=== PATIENT | female | born 1965 | race Caucasian/White ===

== ENCOUNTER 2017-07-22 09:06 | Day surgery (SDC) | payer OTHER ==
[~2017-07-22] VITALS: Ht 157.5 cm; Wt 71.4 kg
[~2017-07-22 09:06] MED LIST: BUPIVACAINE HCL/PF 0.5% 30 ML VIAL ONE; CeFAZolin 2 GM/DEXTROSE 50 ML IV ONE; LIDOCAINE HCL 2%/EPI 1:200,000/PF 10 ML VIAL ONE; [UNRECOGNIZED DRUG - OTHER] PO
[2017-07-22] MEDS ORDERED: PROPOFOL 1% 20 ML VIAL IVP ONE (09:07)
[2017-07-22] MEDS ORDERED: FentaNYL CITRATE-PF 100 MCG/2 ML VIAL IVP ONE (09:07)
[2017-07-22] MEDS ORDERED: MIDAZOLAM HCL 2 MG/2 ML VIAL IVP ONE (09:07)
[2017-07-22] MEDS ORDERED: CeFAZolin 2 GM/DEXTROSE 50 ML IV ONE (09:21)
[2017-07-22] MEDS ORDERED: RINGERS SOLUTION,LACTATED 1,000 ML IV ONE ×2 (09:21→09:30)
[2017-07-22] MEDS ORDERED: LIDOCAINE HCL 2%/EPI 1:200,000/PF 10 ML VIAL ONE (09:44)
[2017-07-22] MEDS ORDERED: BUPIVACAINE HCL/PF 0.5% 30 ML VIAL ONE (09:44)
[2017-07-22] MEDS ORDERED: GUM MASTIC/STORAX/MSAL/ALCOHOL LIQUID 0.67 ML VIAL TP ONE (10:39)
[2017-07-22] MEDS ORDERED: ACETAMINOPHEN 500 MG TABLET PO PRN (11:00)
== END 2017-07-22 12:15 | disposition home or self-care (01) ==
LOC: SURGERY 09:06
PROVIDERS: ATTEND Surgery
DX: D17.1 Benign lipomatous neoplasm of skin and subcutaneous tissue of trunk (principal); K29.70 Gastritis, unspecified, without bleeding; M54.9 Dorsalgia, unspecified; K21.9 Gastro-esophageal reflux disease without esophagitis; Z88.2 Allergy status to sulfonamides; Z98.890 Other specified postprocedural states
CPT/HCPCS: 22903; 88304; J0690; J2250; J2704; J3010; J3490 ×2; J7120